=== PATIENT | female | born 1975 | race Caucasian/White ===

== ENCOUNTER 2016-10-22 14:39 | Emergency (ER) | payer BC ==
[2016-10-22 14:51] VITALS: BP 118/71
--- NOTE | 2016-10-22 15:34 | UC ---
Syncope/New Syncope HPI - HPI Summary HPI Summary: WOKE UP LAST NIGHT ABOUT 2AM TO USE THE RESTROOM WHICH IS DOWNSTAIRS. PT UNCLEAR TO WHAT HAPPENED BUT SHE FELL DOWN THE STAIRS. PROBABLY STRUCK HER HEAD ON THE HARDWOOD AT THAT TIME. NO LOC. WENT TO THE RESTROOM AND SAT DOWN TO PEE. STARTED HAVING PALPITATIONS, FELT COLD AND CLAMMY, BREATHING HEAVILY. THE NEXT THING SHE REMEMBERS IS WAKING UP ON THE FLOOR. GOT UP AND HAD THE SAME SX AGAIN AND AGAIN WOKE UP ON THE FLOOR. THEN MADE IT BACK TO HER ROOM. ONCE BACK IN BED SHE STARTED WITH THE SAME SX AGAIN BUT ALSO DEVELOPED CHEST PAIN AND LEFT ARM NUMBNESS. DECIDED TO STAY IN BED AND FELL ASLEEP. UPON WAKING THIS MORNING HAD THE SAME SX AND THEN AN EPISODE OF EMESIS. EPISODE THIS MORNING LASTED ABOUT 15 MINUTES. HAS FELT "OFF" AND "SPACEY" ALL DAY. PT HAS NO PERSONAL CARDIAC HISTORY. - History Of Current Complaint Chief Complaint: UCHeadInjury Stated Complaint: FAINTING,POSS HEAD INJURY Time Seen by Provider: 10/22/16 14:45 Hx Obtained From: Patient Hx Last Menstrual Period: 10/14/16 Onset/Duration: Sudden Onset Activity At Onset: At Rest Context: Unwitnessed Associated Head Trauma: Yes Pain Intensity: 0 Pain Scale Used: 0-10 Numeric Aggravating Factor(s): Nothing Alleviating Factor(s): Spontaneous Resolution Associated Signs And Symptoms: Positive: Chest Pain, Diaphoresis, Lightheadedness, Numbness, Palpitations, Shortness Of Breath, Vomiting - Allergies/Home Medications Allergies/Adverse Reactions: Allergies Allergy/AdvReac Type Severity Reaction Status Date / Time No Known Allergies Allergy Verified 10/22/16 14:51 PMH/Surg Hx/FS Hx/Imm Hx Previously Healthy: Yes - Surgical History Surgical History: Yes Surgery Procedure, Year, and Place: D&C-2003 - Family History Known Family History: Positive: Hypertension, Other - [place] - Social History Alcohol Use: Daily Substance Use Type: None Smoking Status (MU): Former Smoker Review of Systems Constitutional: Fatigue Respiratory: Shortness Of Breath Cardiovascular: Palpitations, Chest Pain Gastrointestinal: Vomiting, Nausea Genitourinary: Negative All Other Systems Reviewed And Are Negative: Yes Physical Exam Triage Information Reviewed: Yes Appearance: Well-Appearing, No Pain Distress, Well-Nourished Vital Signs: Initial Vital Signs Temp 97.7 F 10/22/16 14:46 Pulse 76 10/22/16 14:46 Resp 18 10/22/16 14:46 BP 118/71 10/22/16 14:46 Pulse Ox 100 10/22/16 14:46 Vital Signs Reviewed: Yes Eyes: Positive: Conjunctiva Clear ENT: Positive: Hearing grossly normal Neck: Positive: Supple, Nontender, No Lymphadenopathy Respiratory Exam: Normal Cardiovascular Exam: Normal Abdomen Description: Positive: Soft Musculoskeletal: Positive: No Edema Neurological: Positive: Alert Psychological: Positive: Age Appropriate Behavior Skin: Negative: rashes Syncope Course/Dx - Differential Dx/Diagnosis Provider Diagnoses: SYNCOPE/CHEST PAIN - Physician Notification/Consults Discussed Patient Care With: Carmen Krause - TO [facility] BY AMBULANCE Time Discussed With Above Provider: 15:15 Instructed by Provider To: Will See In ED Discharge - Discharge Plan Condition: Stable Disposition: TRANS HIGHER LVL OF CARE FAC Referrals: Pooja Jennings MD [Primary Care Provider] -
== END 2016-10-22 15:45 | disposition short-term general hospital (02) ==
LOC: UCEAST 14:39
DX: R55 Syncope and collapse (principal); R07.9 Chest pain, unspecified
CPT/HCPCS: 93005; 99213; G0463

== ENCOUNTER → 2016-10-22 16:13 | Emergency (ER) | payer BC ==
[~2016-10-22 16:13] MED LIST: NS 0.9% 1000 ML* 1,000 ML IV ONE
--- NOTE | 2016-10-22 16:48 | RAD ---
INDICATION: Syncope COMPARISON: None. TECHNIQUE: Single AP portable view of the chest was obtained. FINDINGS: Image quality is compromised due to the relative inferiority of a portable chest x-ray. The heart and mediastinum exhibit normal size and contour. The lungs are grossly clear. There is no evidence of a large pleural effusion. Visualized bones are normal for the patient's age. IMPRESSION: No radiographic evidence for acute cardiopulmonary abnormality on this portable chest x-ray.
[2016-10-22 16:52] LABS: Hematocrit 37 % (35-47); Hemoglobin 12.7 g/dl (12.0-16.0); Mean Corpuscular HGB Conc 34 g/dl (31-36); Mean Corpuscular Hemoglobin 31 pg (27-31); Mean Corpuscular Volume 92 fL (80-97); Mean Platelet Volume 7 um3 (7.4-10.4); Red Blood Count 4.05 10^6/ul (4.0-5.4); Red Cell Distribution Width 13 % (10.5-15); White Blood Count 7.7 10^3/ul (3.5-10.8)
--- NOTE | 2016-10-22 17:00 | RAD ---
Indication: Syncope. Comparison: No relevant prior exams available on the [facility] for comparison. Technique: Noncontrast CT vertex of skull through foramen magnum. Report: The sulci, ventricles, and basal cisterns are normal for age. Mcarthur matter white matter differentiation is preserved without evidence for edema. No intra or extra axial hemorrhage, mass, or fluid collection detected. Unremarkable visualized orbital contents. Unremarkable calvarium and skull base. Unremarkable scalp. The visualized paranasal sinuses and mastoid air spaces are clear. IMPRESSION: Negative unenhanced head CT.
--- NOTE | 2016-10-22 17:04 | RAD ---
INDICATION: Syncope. COMPARISON: July 23, 2011 cervical spine radiographs. TECHNIQUE: Multidetector CT images foramen magnum to lung apices without contrast. Multiplanar reformation. REPORT: Mild kyphosis which appears positional for the exam. Negative for spondylolisthesis or facet subluxation at any level. No vertebral body or posterior element fracture evident. Negative for paravertebral hematoma. Ankylosis at the occiput C1 facet joints. At C4-C5 there is moderate disc space narrowing without CT suggestion of acquired spinal stenosis. At C5-C6 there is advanced disc space narrowing and mild vertebral endplate osteophytosis and reactive endplate change. Mild dorsal disc osteophyte complex without CT evidence for significant central canal stenosis. Uncinate process spurring without significant resulting foraminal stenosis. IMPRESSION: No CT evidence for traumatic cervical spine injury.
[2016-10-22 17:09] LABS: ALT 10 U/L (7-52); AST 16 U/L (13-39); Albumin 4.1 g/dL (3.2-5.2); Alkaline Phosphatase 44 U/L (34-104); Anion Gap 3 mmol/L (2-11); BUN/Creatinine Ratio 22.8 (8-20); Blood Urea Nitrogen 13 mg/dL (6-24); CO2 Carbon Dioxide 30 mmol/L (22-32); Calcium 8.8 mg/dL (8.6-10.3); Chloride 103 mmol/L (101-111); Creatine Kinase 43 U/L (10-223); EGFR African American 151.1 (>60); EGFR Non-African American 117.5 (>60); Globulin 2.4 g/dL (2-4); Glucose 97 mg/dL (70-100); Magnesium 2.2 mg/dL (1.9-2.7); Potassium 3.7 mmol/L (3.5-5.0); Sodium 136 mmol/L (133-145); Total Protein 6.5 g/dL (6.4-8.9)
[2016-10-22 17:30] LABS: Alcohol < 10 mg/dL (<10)
[2016-10-22 17:40] LABS: TSH (Thyroid Stimulating Horm) 1.08 mcIU/mL (0.34-5.60)
[2016-10-22 17:43] LABS: Benzodiazepine Urine Screen None Detected (None Detect)
[2016-10-22 17:51] LABS: Urine Bilirubin Negative (Negative); Urine Glucose Negative (Negative); Urine Nitrite Negative (Negative)
[2016-10-22 21:07] VITALS: BP 114/76
--- NOTE | 2016-10-22 23:14 | ED ---
Chriss Berg Thomas, scribed for Carmen Krause MD on 10/22/16 at 1737 . Syncope/Near Syncope - HPI Summary HPI Summary: The pt is a 41 y/o F [place] [facility] [place] presenting to the ED with two syncopal episodes. The patient reports that she woke up today at 02:00 to go to the bathroom and on the way to the bathroom, the patient fell down 5 stairs. When the patient reached the bathroom and was seated on the toilet, she began to feel lightheaded, palpitations, and clamminess. She then had LOC and the next thing she remembers is being on the floor. The patient reports another syncopal episode shortly after the first. Following this second episode, the patient began to experience chest tightness and heavy breathing. She denies any urinary or fecal incontinence during this episode. The patient went to sleep shortly thereafter. Later, when the patient was at work in the morning, she began to develop lightheadedness, palpitations, and clamminess again. She works at [employer], a [employer], and at the request of her coworkers she presented to [facility] In the ED, the patients only complaints are of tiredness, bruising to her 2nd and 3rd toes of her right foot, and an abrasion to the inside of her cheek. She denies CP, SOB, WALL, and abd pain. PMHx: previously healthy. PSHx: D&C. SHx: former smoker, daily alcohol use, no illicit drug use. FHx: HTN, CA. LNMP 10/09/16. Patients medications reviewed this visit. - History Of Current Complaint Chief Complaint: EDSyncope Time Seen by Provider: 10/22/16 16:14 Hx Obtained From: Patient, Medical Records, Other: - Dr. Nissa Gibson, [facility] Onset/Duration: Sudden Onset, Lasting Minutes - first syncopal episode today at 02:00 Timing: Constant Context: Unwitnessed, Loss Of Consciousness Activity At Onset: Other - Walking down stairs for first syncopal episode and then on the toilet for the second syncopal episode when seated onthe toilet Aggravating Factor(s): Nothing Alleviating Factor(s): Spontaneous Resolution Associated Signs And Symptoms: Chest Pain - none in the ED, although she complains of chest tightness earlier, Lightheadedness - none in the ED, although some lightheadedness during syncopal episode, Palpitations, Shortness Of Breath - none inthe ED, although some dificulty breathing earlier, Other - POS: claminess (none in ED), syncope with LOC, tiredness, bruising to toes; NEG : urinary or fecal incontinence, abd pain, WALL Frequency: Episodes x___ - 2x episodes - Allergies/Home Medications Allergies/Adverse Reactions: Allergies Allergy/AdvReac Type Severity Reaction Status Date / Time No Known Allergies Allergy Verified 10/22/16 16:17 PMH/Surg Hx/FS Hx/Imm Hx Previously Healthy: Yes Endocrine/Hematology History: Denies: Hx Diabetes, Hx Thyroid Disease Cardiovascular History: Denies: Hx Hypertension Respiratory History: Denies: Hx Asthma, Hx Chronic Obstructive Pulmonary Disease (COPD) GI History: Denies: Hx Ulcer - Surgical History Surgery Procedure, Year, and Place: &C-2003 Infectious Disease History: No Infectious Disease History: Denies: Hx Clostridium Difficile, Hx Hepatitis, Hx Human Immunodeficiency Virus (HIV), Hx of Known/Suspected MRSA, Hx Shingles, Hx Tuberculosis, Hx Known/ Suspected VRE, Hx Known/Suspected VRSA, History Other Infectious Disease, Traveled Outside the [place] in Last 30 Days - Family History Known Family History: Positive: Hypertension, Other - [place] - Social History Alcohol Use: Daily Substance Use Type: Reports: None Smoking Status (MU): Former Smoker Review of Systems Positive: Other - POS: claminess (pre-syncope). Negative: Fever Positive: Palpitations - pre-syncope, Chest Pain - post-syncope, described as syncope, none in the ED Positive: Shortness Of Breath - post-syncope, none in the ED Negative: Abdominal Pain Negative: other - NEG: urinary or fecal incontinence Positive: Other - POS: abrasion (inside of cheek), bruising (2nd and 3rd toes of right foot) Neurological: Other - POS: syncope with LOC (two episodes), lightheadedness (pre -syncope), tiredness (in the ED) Negative: Headache All Other Systems Reviewed And Are Negative: Yes Physical Exam Triage Information Reviewed: Yes Vital Signs On Initial Exam: Initial Vitals Temp Pulse Resp BP Pulse Ox 97.8 F 80 16 123/91 95 10/22/16 16:15 10/22/16 16:15 10/22/16 16:15 10/22/16 16:15 10/22/16 16:15 Vital Signs Reviewed: Yes Appearance: Positive: Well-Appearing, No Pain Distress - at initial examination , patient wants to leave, Well-Nourished Skin: Positive: Warm, Skin Color Reflects Adequate Perfusion, Dry, Other - Superficial abrasions on right knee Head/Face: Positive: Normal Head/Face Inspection, Other - There are no racoon eyes or hemotympanum Eyes: Positive: GIOVANA - 2 mm ENT: Positive: Normal ENT inspection Neck: Positive: Supple Respiratory/Lung Sounds: Positive: Clear to Auscultation, Breath Sounds Present , Other - No respiratory distress Cardiovascular: Positive: RRR, Pulses are Symmetrical in both Upper and Lower Extremities, Other - Brisk cap refill.. Negative: Murmur Abdomen Description: Positive: Nontender, Soft. Negative: CVA Tenderness (R), CVA Tenderness (L) Bowel Sounds: Positive: Present Musculoskeletal: Positive: Strength/ROM Intact, Other - Chest is non-tender Neurological: Positive: Sensory/Motor Intact, Alert, Oriented to Person Place, Time, Facial Symmetry, Speech Normal Psychiatric: Positive: Affect/Mood Appropriate - [place] Coma Scale Coma Scale Total: 15 Diagnostics - Vital Signs Vital Signs Temp Pulse Resp BP Pulse Ox 10/22/16 17:00 66 19 105/69 99 10/22/16 16:53 71 18 107/73 99 10/22/16 16:48 86 21 97 10/22/16 16:47 105/64 96 10/22/16 16:17 97.8 F 80 16 123/91 95 10/22/16 16:15 97.8 F 80 16 123/91 95 - Laboratory Lab Results: Lab Results 10/22/16 10/22/16 10/22/16 Range/Units 16:43 16:43 16:43 WBC 7.7 (3.5-10.8) 10^3/ul RBC 4.05 (4.0-5.4) 10^6/ul Hgb 12.7 (12.0-16.0) g/dl Hct 37 (35-47) % MCV 92 (80-97) fL MCH 31 (27-31) pg MCHC 34 (31-36) g/dl RDW 13 (10.5-15) % Plt Count 252 (150-450) 10^3/ul MPV 7 L (7.4-10.4) um3 Neut % (Auto) 68.4 (38-83) % Lymph % (Auto) 21.3 L (25-47) % [place] % (Auto) 8.9 (1-9) % Eos % (Auto) 0.7 (0-6) % Baso % (Auto) 0.7 (0-2) % Absolute Neuts (auto) 5.3 (1.5-7.7) 10^3/ul Absolute Lymphs (auto) 1.7 (1.0-4.8) 10^3/ul Absolute Monos (auto) 0.7 (0-0.8) 10^3/ul Absolute Eos (auto) 0.1 (0-0.6) 10^3/ul Absolute Basos (auto) 0.1 (0-0.2) 10^3/ul Absolute Nucleated RBC 0 10^3/ul Nucleated RBC % 0 INR (Anticoag Therapy) 0.94 (0.89-1.11) D-Dimer, Quantitative < 200 (Less Than 230) ng/mL Sodium 136 (133-145) mmol/L Potassium 3.7 (3.5-5.0) mmol/L Chloride 103 (101-111) mmol/L Carbon Dioxide 30 (22-32) mmol/L Anion Gap 3 (2-11) mmol/L BUN 13 (6-24) mg/dL Creatinine 0.57 (0.51-0.95) mg/dL Est GFR ( Amer) 151.1 (>60) Est GFR (Non-Af Amer) 117.5 (>60) BUN/Creatinine Ratio 22.8 H (8-20) Glucose 97 (70-100) mg/dL Lactic Acid (0.5-2.0) mmol/L Calcium 8.8 (8.6-10.3) mg/dL Magnesium 2.2 (1.9-2.7) mg/dL Total Bilirubin 0.50 (0.2-1.0) mg/dL AST 16 (13-39) U/L ALT 10 (7-52) U/L Alkaline Phosphatase 44 (34-104) U/L Total Creatine Kinase 43 (10-223) U/L Troponin I 0.00 (<0.04) ng/mL Total Protein 6.5 (6.4-8.9) g/dL Albumin 4.1 (3.2-5.2) g/dL Globulin 2.4 (2-4) g/dL Albumin/Globulin Ratio 1.7 (1-3) TSH Pending Beta HCG, Quant < 0.60 mIU/mL Serum Alcohol Pending 10/22/16 Range/Units 16:43 WBC (3.5-10.8) 10^3/ul RBC (4.0-5.4) 10^6/ul Hgb (12.0-16.0) g/dl Hct (35-47) % MCV (80-97) fL MCH (27-31) pg MCHC (31-36) g/dl RDW (10.5-15) % Plt Count (150-450) 10^3/ul MPV (7.4-10.4) um3 Neut % (Auto) (38-83) % Lymph % (Auto) (25-47) % [place] % (Auto) (1-9) % Eos % (Auto) (0-6) % Baso % (Auto) (0-2) % Absolute Neuts (auto) (1.5-7.7) 10^3/ul Absolute Lymphs (auto) (1.0-4.8) 10^3/ul Absolute Monos (auto) (0-0.8) 10^3/ul Absolute Eos (auto) (0-0.6) 10^3/ul Absolute Basos (auto) (0-0.2) 10^3/ul Absolute Nucleated RBC 10^3/ul Nucleated RBC % INR (Anticoag Therapy) (0.89-1.11) D-Dimer, Quantitative (Less Than 230) ng/mL Sodium (133-145) mmol/L Potassium (3.5-5.0) mmol/L Chloride (101-111) mmol/L Carbon Dioxide (22-32) mmol/L Anion Gap (2-11) mmol/L BUN (6-24) mg/dL Creatinine (0.51-0.95) mg/dL Est GFR ( Amer) (>60) Est GFR (Non-Af Amer) (>60) BUN/Creatinine Ratio (8-20) Glucose (70-100) mg/dL Lactic Acid 0.5 (0.5-2.0) mmol/L Calcium (8.6-10.3) mg/dL Magnesium (1.9-2.7) mg/dL Total Bilirubin (0.2-1.0) mg/dL AST (13-39) U/L ALT (7-52) U/L Alkaline Phosphatase (34-104) U/L Total Creatine Kinase (10-223) U/L Troponin I (<0.04) ng/mL Total Protein (6.4-8.9) g/dL Albumin (3.2-5.2) g/dL Globulin (2-4) g/dL Albumin/Globulin Ratio (1-3) TSH Beta HCG, Quant mIU/mL Serum Alcohol Result Diagrams: 10/22/16 16:43 10/22/16 16:43 Lab Statement: Any lab studies that have been ordered have been reviewed, and results considered in the medical decision making process. - Radiology CXR Xray Interpretation: No Acute Changes - CXR shows No radiographic evidence for acute cardiopulmonary abnormality on this portable chest x-ray. ED physician has reviewed this report and agrees. Radiology Interpretation Completed By: Radiologist - CT CT Brain CT Interpretation: No Acute Changes - CT Brain shows negative unenhanced head CT. ED physician has reviewed this report and agrees. CT Interpretation Completed By: Radiologist CT C-Spine CT Interpretation: No Acute Changes - CT C-Spine Shows No CT evidence for traumatic cervical spine injury. ED physician has reviewed this report and agrees. CT Interpretation Completed By: Radiologist - EKG 16:17 Cardiac Rate: NL - 68 BPM EKG Interpretation: Sinus rhythm. Normal AV/IV/QTc/[place]. Nml EKG. EKG Comparison: Other - No previous to compare Course/Dx Assessment/Plan: The pt is a 41 y/o F [place] [facility] with two syncopal episodes with LOC. During these episodes, she felt lightheadedness, palpitations , and clamminess. She also notes complaints of chest tightness and heavy breathing. She denies any urinary or fecal incontinence during this episode. In the ED, she denies CP, SOB, WALL, and abd pain. In the ED course the patient was given IV fluids. CXR shows No radiographic evidence for acute cardiopulmonary abnormality on this portable chest x-ray. CT C-Spine Shows No CT evidence for traumatic cervical spine injury. CT Brain shows negative unenhanced head CT. ED physician has reviewed this report and agrees. EKG at 16:17 reveals SR at 68 BPM , Normal AV/IV/QTc/[place]. Nml EKG. The patient is diagnosed with syncope. She is discharged home with follow up by PCP. She is agreeable to this plan. Discharge - Discharge Plan Condition: Stable Disposition: HOME Patient Education Materials: Syncope (ED) Forms: *Work Release Referrals: Pooja Jennings MD [Primary Care Provider] - 3 Days Additional Instructions: Your labs and CT and chest xray were all remarkable. You were given a liter of normal saline while in the ER. Return to the ER if you have any new or worsening symptoms. The documentation as recorded by the Chriss talbot Thomas accurately reflects the service I personally performed and the decisions made by , Carmen Krause MD.
== END | disposition home or self-care (01) ==
LOC: ED 16:13
DX: R55 Syncope and collapse (principal); Z87.891 Personal history of nicotine dependence; R07.89 Other chest pain
CPT/HCPCS: 36415; 70450; 71010; 72125; 80053; 80307; 80320; 81003; 82550; 83605; 83735; 84443; 84484; 84702; 85025; 85379; 85610; 93005; 96360; 99283; G0480

== ENCOUNTER 2018-06-13 11:18 | Emergency (ER) | payer BC ==
[2018-06-13] MEDS ORDERED: Aspirin TAB* 325 MG PO ONE (11:28)
[2018-06-13] MEDS ORDERED: Nitroglycerin TAB 0.4 MG* 0.4 MG TAB SL ONE (11:28)
[2018-06-13] MEDS ORDERED: Aspirin 81 mg CHEW TAB* 81 MG TAB.CHEW ONE (11:29)
[2018-06-13] MEDS ORDERED: Morphine 10 MG/ML VIAL (1 ml) IV ONE (11:36)
--- NOTE | 2018-06-13 11:36 | UC ---
General HPI - HPI Summary HPI Summary: Patient c/o chest pain for the past two days. Started yesterday while at rest in the afternoon after she saw her PCP for follow fpr a cold. She was prescribed buspar and singulair. Thought maybe it was a panic attack. Does have issues with anxiety. CHest pain radiating into her back. So she rested all day yesterday. She took her new medications prescribed to her for her cold and anxiety last night thinking it would help with her chest pain. - buspar and singulair. No improvement in her symptoms today. Continues with chest pain, now with SOB, diaphoresis, nausea and palpitations. Substernal chest pain. No indigestion or belching - states she hasn't eaten anything due to the discomfort. Denies any exertional activity. States she just does not feel right. Thought the medication she started last night would help her feel better. Has had sinus infections all winter. Has not needed her inhaler in 2 years. NO fever PMHx: Anxiety, seasonal allergies, asthma No FMHx of early cardiac disease/. Meds: REviewed - History of Current Complaint Chief Complaint: UCChestPain Stated Complaint: CHEST PAIN Time Seen by Provider: 06/13/18 11:20 Hx Last Menstrual Period: two weeks ago Pain Intensity: 8 - Allergy/Home Medications Allergies/Adverse Reactions: Allergies Allergy/AdvReac Type Severity Reaction Status Date / Time No Known Allergies Allergy Verified 10/22/16 16:17 Home Medications: Home Medications Escitalopram Oxalate [Lexapro 10 mg] 10 mg PO DAILY 06/13/18 [History Confirmed 06/13/18] Montelukast Sodium TAB* [Singulair TAB*] 10 mg PO DAILY 06/13/18 [History Confirmed 06/13/18] busPIRone TAB* [Buspar TAB*] 5 mg PO BID 06/13/18 [History Confirmed 06/13/18] PMH/Surg Hx/FS Hx/Imm Hx Previously Healthy: Yes Respiratory History: Asthma Psychological History: Anxiety - Surgical History Surgical History: Yes Surgery Procedure, Year, and Place: D&C-2003 - Family History Known Family History: Positive: Hypertension, Other - [place] - Social History Alcohol Use: Weekly Substance Use Type: None Smoking Status (MU): Former Smoker Review of Systems All Other Systems Reviewed And Are Negative: Yes Constitutional: Positive: Negative Respiratory: Positive: Shortness Of Breath Cardiovascular: Positive: Palpitations, Chest Pain Physical Exam Triage Information Reviewed: Yes Appearance: Other: - mildly acute distress Vital Signs: Initial Vital Signs Temp 98.7 F 06/13/18 11:23 Pulse 103 06/13/18 11:23 Resp 20 06/13/18 11:23 BP 153/83 06/13/18 11:23 Pulse Ox 98 06/13/18 11:23 Vital Signs Reviewed: Yes ENT: Positive: Pharyngeal erythema, TMs normal Neck: Positive: Supple Respiratory: Positive: Lungs clear, Normal breath sounds, No respiratory distress Cardiovascular: Positive: Tachycardia, Other: - soft systolic murmur Diagnostics - EKG Cardiac Rate: Other Rate - Ana Sinus: rate: 94, Minimal ST depression in lateral leads Course/Dx - Course Course Of Treatment: This is a 42 yr old with PMHx of anxiety, mild asthma who presents with chest pain, SOB and palpitations Assessment Presentation with subtle EKG changes - minimal ST depression in lateral leads NEeds [facility] to rule out ACS Received ASA 325 mg PO x 1, NTG 0.4 mg SL and morphine 2 mg On transport, more crushing type chest pain Repeat 12 lead - remains unremarkable Patient aware of need to be transported to [facility] ER for work up for acute coronary syndrome. Could also be anxiety/panic attack Patient transported via EMS to [facility] ED - Report given to Dr. Robertson - Diagnoses Provider Diagnosis: Chest pain, Anxiety Discharge - Sign-Out/Discharge Documenting (check all that apply): Patient Departure All imaging exams completed and their final reports reviewed: No Studies - Discharge Plan Condition: Fair Disposition: TRANS HIGHER LVL OF CARE FAC Referrals: Pooja Jennings MD [Primary Care Provider] - Additional Instructions: Patient transported via EMS to [facility] ED for evaluation of chest pain - Billing Disposition and Condition Condition: FAIR Disposition: Trans Higher Lvl of Care Fac
[2018-06-13 11:49] VITALS: BP 160/120
== END 2018-06-13 11:50 | disposition short-term general hospital (02) ==
LOC: UCEAST 11:18
DX: R07.89 Other chest pain (principal); F41.9 Anxiety disorder, unspecified; R06.02 Shortness of breath; R61 Generalized hyperhidrosis; R00.2 Palpitations; J45.909 Unspecified asthma, uncomplicated; Z87.891 Personal history of nicotine dependence
CPT/HCPCS: 93005; 96374; 99213; A9270-GY; G0463; J2270

== ENCOUNTER 2018-06-13 12:13 | Emergency (ER) | payer BC ==
[2018-06-13] MEDS ORDERED: NS 0.9% 1000 ML** 1,000 ML IV ONE (12:14)
--- NOTE | 2018-06-13 12:31 | ED ---
HPI Chest Pain - HPI Summary HPI Summary: t is a 42 y/o female brought in by EMS who presents to the ED c/o left anterior CP. She was sent here from the for further evaluation. An EKG there revealed NSR and minimal ST depressions in the lateral leads. Pt was given ASA, NTG, and morphine at the which improved her pain. Yesterday she began to have CP that radiates to her back while at rest. This morning the CP worsened, and she also now c/o racing palpitations, nausea, diaphoresis, and mild SOB. Pain is constant and stabbing in nature, and is currently rated a 5/10 in severity. Pain is made worse with deep breaths. Recently shes also c/o anxiety and decreased appetite. She denies any vomiting. Pt took her own vital signs at home : BP 127/80, HR 112 bpm. She notes that she has been under stress recently and is currently trying to get her anxiety medication dosage increased. Pt is a former smoker. PMHx anxiety, but no DM or HTN. She has a Mirena IUD. - History of Current Complaint Time Seen by Provider: 06/13/18 12:14 Hx Obtained From: Patient, EMS, Medical Records Hx Last Menstrual Period: two weeks ago Onset/Duration: Started Days Ago - 1, Resolved - somewhat Timing: Constant Current Severity: Moderate Pain Intensity: 5 Pain Scale Used: 0-10 Numeric Chest Pain Location: Left Anterior Chest Pain Radiates: Yes Chest Pain Radiates To:: Back Character: Sharp/Stabbing Aggravating Factor(s): Deep Breaths Alleviating Factor(s): Other: - ASA, NTG, morphine Associated Signs and Symptoms: Positive: Chest Pain, Anxiety, Shortness of Breath, Diaphoresis, Nausea, Palpitations - Allergy/Home Medications Allergies/Adverse Reactions: Allergies Allergy/AdvReac Type Severity Reaction Status Date / Time No Known Allergies Allergy Verified 10/22/16 16:17 PMH/Surg Hx/FS Hx/Imm Hx Endocrine/Hematology History: Denies: Hx Diabetes, Hx Thyroid Disease Cardiovascular History: Denies: Hx Hypercholesterolemia, Hx Hypertension Respiratory History: Reports: Hx Asthma - enviro allergies, Hx Seasonal Allergies Denies: Hx Chronic Obstructive Pulmonary Disease (COPD) GI History: Denies: Hx Gall Bladder Disease, Hx Ulcer Psychiatric History: Reports: Hx Anxiety, Hx Depression - Surgical History Surgery Procedure, Year, and Place: [facility]&C-2003 Infectious Disease History: Denies: Hx Clostridium Difficile, Hx Hepatitis, Hx Human Immunodeficiency Virus (HIV), Hx of Known/Suspected MRSA, Hx Shingles, Hx Tuberculosis, Hx Known/ Suspected VRE, Hx Known/Suspected VRSA, History Other Infectious Disease - Family History Known Family History: Positive: Hypertension, Diabetes, Other - CA - Social History Alcohol Use: Weekly Hx Substance Use: No Substance Use Type: Reports: None Hx Tobacco Use: Yes Smoking Status (MU): Former Smoker Review of Systems Positive: Skin Diaphoresis, Other - decreased appetite Positive: Palpitations, Chest Pain Positive: Shortness Of Breath Positive: Nausea. Negative: Vomiting Positive: Anxious All Other Systems Reviewed And Are Negative: Yes Physical Exam - Summary Physical Exam Summary: Appearance: well appearing, no pain distress Skin: warm, dry, reflects adequate perfusion Head/face: normal Eyes: EOMI, GIOVANA ENT: mucous membranes moist Neck: supple, non-tender Respiratory: CTA, breath sounds present Cardiovascular: RRR, pulses symmetrical Abdomen: non-tender, soft Bowel Sounds: present Musculoskeletal: normal, strength/ROM intact Neuro: normal, sensory motor intact, A&Ox3 Psych: mildly anxious Triage Information Reviewed: Yes Vital Signs Reviewed: Yes Diagnostics - Laboratory Result Diagrams: 06/13/18 12:45 06/13/18 12:45 Lab Statement: Any lab studies that have been ordered have been reviewed, and results considered in the medical decision making process. - Radiology CXR Radiology Interpretation Completed By: Radiologist Summary of Radiographic Findings: No radiographic evidence for acute cardiopulmonary abnormality on this. portable chest x-ray. ED physician reviewed radiology report. - EKG 12:25 Cardiac Rate: NL - 80 bpm EKG Rhythm: Sinus Rhythm ST Segment: Normal Summary of EKG Findings: Nl axis, nl intervals Re-Evaluation - Re-Evaluation First Eval Re-Evaluation Time: 14:15 Change: Improved Comment: Pt's pain is improved. Chest Pain Course/Dx - Course Course Of Treatment: [place] patient without independent risk factors for cardiac disease presents with unremitting chest pain and anxiety. She had no improvement with nitroglycerin. D-dimer, troponin are 0. EKG is normal. Her symptoms resolved here largely on her own but improved further with Ativan. She 'll be continued on Vistaril outpatient and will follow-up with her primary care physician for outpatient stress test. - Chest Pain Differential Diagnosis/HQI/PQRI: Acute [place], ACS, GI Disease, Lower Respiratory Infection, Pulmonary Edema, Pulmonary Embolism - Diagnoses Provider Diagnoses: Anxiety reaction, Atypical chest pain Discharge - Sign-Out/Discharge Documenting (check all that apply): Patient Departure - Discharge Patient Received Moderate/Deep Sedation with Procedure: No - Discharge Plan Condition: Improved Disposition: HOME Prescriptions: hydrOXYzine pamoate [Vistaril] 50 mg PO TID PRN #30 cap PRN Reason: Anxiety Patient Education Materials: Chest Pain (ED), Anxiety (ED) Forms: *Work Release Referrals: Pooja Jennings MD [Medical Doctor] - Additional Instructions: Call your doctor today to schedule prompt follow-up and an outpatient echocardiogram. Drink plenty of fluids. Avoid alcohol and caffeine. Return with on controlled anxiety, difficulty breathing, chest pains, worse or other concerns. - Billing Disposition and Condition Condition: IMPROVED Disposition: Home - Attestation Statements Document Initiated by Fabiane: Yes Documenting Scribe: Shreya Mo Provider For Whom [place] is Documenting (Include Credential): Karel Robertson MD Scribe Attestation: Shreya Berg, scribed for Karel Robertson MD on 06/13/18 at 1849. Scribe Documentation Reviewed: Yes Provider Attestation: The documentation as recorded by the scribeShreya accurately reflects the service I personally performed and the decisions made by me, Karel Robertson MD Status of Scribe Document: Viewed
[2018-06-13 12:54] LABS: ABS Basophils 0.1 10^3/ul (0-0.2); ABS Eosinophils 0 10^3/ul (0-0.6); ABS Lymphocytes 1.9 10^3/ul (1.0-4.8); ABS Monocytes 0.9 10^3/ul (0-0.8); ABS Neutrophils 6.8 10^3/ul (1.5-7.7); ABS Nucleated RBC 0 10^3/ul; Eosinophil % 0.4 %; Hematocrit 39 % (33-41); Hemoglobin 13.4 g/dL (12.0-16.0); Lymphocyte % 19.5 %; Mean Corpuscular HGB Conc 35 g/dL (31-36); Mean Corpuscular Hemoglobin 31 pg (27-31); Mean Corpuscular Volume 91 fL (80-97); Mean Platelet Volume 7.1 fL (7.4-10.4); Nucleated Red Blood Cells % 0.1; Platelet Count 305 10^3/uL (150-450); Red Blood Count 4.28 10^6 /uL (3.70-4.87); Red Cell Distribution Width 13 % (10.5-15); White Blood Count 9.6 10^3/uL (3.5-10.8)
[2018-06-13 13:05] LABS: INR 1.03 (0.82-1.09)
[2018-06-13 13:10] LABS: ALT 10 U/L (7-52); AST 16 U/L (13-39); Albumin 4.5 g/dL (3.2-5.2); Albumin/Globulin Ratio 1.5 (1-3); Alkaline Phosphatase 65 U/L (34-104); Anion Gap 7 mmol/L (2-11); BUN/Creatinine Ratio 17.7 (8-20); Blood Urea Nitrogen 11 mg/dL (6-24); CO2 Carbon Dioxide 26 mmol/L (22-32); Calcium 9.3 mg/dL (8.6-10.3); Chloride 104 mmol/L (101-111); EGFR African American 128.4 (>60); EGFR Non-African American 106.1 (>60); Glucose 117 mg/dL (70-100); Potassium 3.5 mmol/L (3.5-5.0); Sodium 137 mmol/L (135-145); Total Protein 7.5 g/dL (6.4-8.9)
--- OUTSIDE RECORDS SUMMARY | 2018-06-13 13:12 | XMS REPORT | Continuity of Care Document ---
:1975 External Reference #:[id number] Author Name Lisa Payton FNP Address [address] [place] [address] Care Team Providers Name Role Phone Flori Mcmahon, TORRI, ARCHEOLOGY FACULTY MEMBER, Ibclc Care Team Information Printed Circuit Board Preassembler Unavailable Flori Mcmahon PNP-BC, ROLANDA, Ibclc Primary Care Physician Unavailable Payers Date Identification Numbers Payment Provider Subscriber Policy Number: [id number] Hui Day PayID: [id number] [address] [address] [place] [address] Advance Directives Description No Information Available Problems Active Problems Provider Date Dysthymia Lisa Payton FNP Onset: 02/17/2015 Inactive Problems No current problems or disability Onset: 03/05/2014 Inactive: 01/20/2015 Resolved Problems Otitis media Chitra Kessler MD Onset: 01/20/2015 Resolved: 02/17/2015 Family History Description No Information Available Social History Type Date Description Comments Sex Unknown Lives With Lives With Sons Diet Healthy, Well Balanced Occupation Currently Working Tobacco Use Start: Unknown End: Former Cigarette Smoker Unknown Smoking Status Reviewed: 06/12/18 Former Cigarette Smoker ETOH Use consumes 1-2 glasses of wine per day ETOH Use Currently consumes alcohol socially Tobacco Use Start: Unknown End: Patient is a former 1PPDx 26 years Quit Unknown smoker 05/2013 Enjoy Exercising Patient enjoys exercising Allergies, Adverse Reactions, Alerts Active Allergies Reaction Severity Comments Date NKDA 03/18/2016 Environmental 05/12/2011 Medications Active Medications SIG Qnty Indications Ordering Provider Date Buspirone HCL take 1 -2 tablet 120tabs F41.1 [place], 06/12/2018 5mg by mouth three [place], Tablets times a day [facility] Montelukast Sodium take one tablet 30tabs J30.9 [place], 06/12/2018 10mg by mouth every [place], Tablets evening [facility] Escitalopram Oxalate take 1 tablet by 30tabs Flori Mcmahon, 01/09/2018 mouth daily. [facility], 20mg Tablets Ibclc Zanaflex Take 1 tablet by 30caps R20.0 More Mccray FNP 12/16/2017 2mg Capsules mouth every 8 hours as needed for muscle spasm Ventolin HFA 1-2 puffs every 18gm Pooja Jennings M.D. 03/04/2016 4-6 hours as 108(90Base) mcg/Act needed Aerosol Nasonex one spray each 1units H69.92 Pooja Jennings M.D. 02/17/2015 50mcg/Act nostril twice a Suspension day Mirena Fito, 12/15/2014 20mcg/24HR IUD Lisa [facility] Vitamin C 1 by mouth every Unknown 500mg day Chewtabs Magnesium 1 by mouth every Unknown 400mg Tablets day History Medications Cyclobenzaprine HCL take 1 tablet 30tabs R20.0 More Mccray, 12/16/2017 - 10mg by mouth up to [facility] 12/16/2017 Tablets 3 times per day as needed for muscle spasms Escitalopram Oxalate Take 1 tablet 30tabs F33.0 More Mccray, 12/16/2017 - 10mg by mouth daily [facility] 01/09/2018 Tablets at bedtime. Sertraline HCL 1 and 1/2 tab 45tabs Flori Mcmahon, 06/07/2017 - 100mg by mouth every ROLANDA WILD, 12/16/2017 Tablets daily Ibclc Augmentin 1 tab by mouth 20tabs J01.90 Flori Mcmahon, 03/18/2016 - 875-125mg Tablets twice a day PNPROLANDA GILL, 04/01/2016 for 10 days Ibclc Cedax 1 PO qd 10caps H66.92 Chitra Kessler, 01/20/2015 - 400mg Capsules 01/20/2015 Amoxicillin/Clavulanate 2 By Mouth 40tabs H66.92 Chitra Kessler 2014 - Potassium 2X/Day 01/31/2015 500-125mg Tablets Sertraline HCL 1 by mouth 30tabs Flori Mcmahon, 01/06/2015 - 50mg Tablets every day TORRI, ROLANDA, 06/07/2017 Ibclc Ventolin HFA 1-2 puffs q 36units Rose Mary 11/26/2010 - 108mcg/Act 4-6 hours prn MD Ginger 02/24/2016 Aerosol Medications Administered in Office Medication SIG Qnty Indications Ordering Provider Date More Crouch FNP 02/27/2018 Injection Flori Hennessy PNP-BC, 02/24/2017 Injection ARCHEOLOGY FACULTY MEMBER, Vishnu RODRIGUEZ Family Nurse 02/22/2017 Injection Pooja Luna M.D. 02/24/2016 Injection Lisa Brady FNP 02/17/2015 Injection Immunizations CPT Code Status Date Vaccine Lot # [id number] Given 06/07/2017 Tdap injection [id number] Vital Signs Date Vital Result Comment 06/12/2018 9:40am BP Systolic 128 mmHg BP Diastolic 80 mmHg Body Temperature 98.7 F Heart Rate 80 /min Respiratory Rate 18 /min Height 62 inches 5'2" Weight 160.38 lb BMI (Body Mass Index) 29.3 kg/m2 BSA (Body Surface Area) 1.74 m2 [place] body weight in kilograms 50 kg O2 % BldC Oximetry 98 % Ra 02/27/2018 4:01pm BP Systolic 124 mmHg BP Diastolic 72 mmHg Heart Rate 79 /min Respiratory Rate 18 /min Height 62 inches 5'2" Weight 170.00 lb BMI (Body Mass Index) 31.1 kg/m2 BSA (Body Surface Area) 1.78 m2 [place] body weight in kilograms 50 kg O2 % BldC Oximetry 94 % 01/09/2018 8:32am BP Systolic 110 mmHg BP Diastolic 66 mmHg Heart Rate 84 /min Respiratory Rate 16 /min Height 62 inches 5'2" Weight 166.00 lb BMI (Body Mass Index) 30.4 kg/m2 BSA (Body Surface Area) 1.77 m2 [place] body weight in kilograms 50 kg O2 % BldC Oximetry 96 % 12/16/2017 4:25pm BP Systolic Sitting Right Arm 132 mmHg BP Diastolic Sitting Right Arm 70 mmHg Body Temperature 98.6 F Heart Rate 83 /min Respiratory Rate 22 /min Height 62 inches 5'2" Weight 162.50 lb BMI (Body Mass Index) 29.7 kg/m2 BSA (Body Surface Area) 1.75 m2 [place] body weight in kilograms 50 kg O2 % BldC Oximetry 96 % 06/07/2017 3:44pm BP Systolic Sitting Left Arm 104 mmHg BP Diastolic Sitting Left Arm 64 mmHg Heart Rate 82 /min Respiratory Rate 20 /min Height 62 inches 5'2" Weight 160.25 lb BMI (Body Mass Index) 29.3 kg/m2 BSA (Body Surface Area) 1.74 m2 [place] body weight in kilograms 50 kg 02/24/2017 3:26pm BP Systolic 106 mmHg BP Diastolic 60 mmHg Body Temperature 98.0 F Heart Rate 95 /min Height 62 inches 5'2" Weight 157.00 lb BMI (Body Mass Index) 28.7 kg/m2 BSA (Body Surface Area) 1.72 m2 [place] body weight in kilograms 50 kg O2 % BldC Oximetry 98 % 06/01/2016 4:30pm BP Systolic Sitting Right Arm 112 mmHg BP Diastolic Sitting Right Arm 64 mmHg Heart Rate 72 /min Height 62 inches 5'2" Weight 152.50 lb BMI (Body Mass Index) 27.9 kg/m2 BSA (Body Surface Area) 1.70 m2 03/18/2016 10:10am BP Systolic Sitting Left Arm 100 mmHg BP Diastolic Sitting Left Arm 66 mmHg Body Temperature 97.2 F Heart Rate 56 /min Respiratory Rate 20 /min Height 62 inches 5'2" Weight 149.00 lb BMI (Body Mass Index) 27.2 kg/m2 BSA (Body Surface Area) 1.69 m2 02/24/2016 4:11pm BP Systolic Sitting Left Arm 106 mmHg BP Diastolic Sitting Left Arm 62 mmHg Height 62 inches 5'2" Weight 148.12 lb BMI (Body Mass Index) 27.1 kg/m2 BSA (Body Surface Area) 1.68 m2 [place] body weight in kilograms 50 kg 04/15/2015 5:24pm BP Systolic 124 mmHg BP Diastolic 76 mmHg Height 62 inches 5'2" Weight 134.50 lb BMI (Body Mass Index) 24.6 kg/m2 BSA (Body Surface Area) 1.62 m2 02/17/2015 10:59am BP Systolic 112 mmHg BP Diastolic 68 mmHg Heart Rate 80 /min Respiratory Rate 18 /min Height 62 inches 5'2" Weight 133.00 lb BMI (Body Mass Index) 24.3 kg/m2 BSA (Body Surface Area) 1.61 m2 01/20/2015 2:29pm BP Systolic 107 mmHg BP Diastolic 59 mmHg Body Temperature 98.6 F Heart Rate 77 /min Respiratory Rate 21 /min Weight 136.25 lb 01/06/2015 1:05pm BP Systolic 124 mmHg BP Diastolic 74 mmHg Height 62 inches 5'2" Weight 131.25 lb BMI (Body Mass Index) 24.0 kg/m2 BSA (Body Surface Area) 1.60 m2 03/04/2014 4:38pm BP Systolic 124 mmHg BP Diastolic 70 mmHg Height 61 inches 5'1" Weight 133.00 lb 04/17/2013 3:33pm BP Systolic 108 mmHg BP Diastolic 60 mmHg Heart Rate 88 /min Height 62 inches 5'2" Weight 127.00 lb 05/01/2012 4:00pm BP Systolic 112 mmHg BP Diastolic 72 mmHg Heart Rate 60 /min Respiratory Rate 18 /min Height 62 inches 5'2" Weight 119.00 lb 12/22/2011 6:49pm BP Systolic 120 mmHg BP Diastolic 78 mmHg Height 62 inches 5'2" Weight 121.00 lb 12/02/2011 10:12am BP Systolic 100 mmHg BP Diastolic 62 mmHg Weight 120.00 lb 11/11/2011 9:59am BP Systolic 115 mmHg BP Diastolic 76 mmHg Body Temperature 98.6 F Height 62 inches 5'2" Weight 118.00 lb 05/12/2011 4:30pm BP Systolic 112 mmHg BP Diastolic 70 mmHg Heart Rate 80 /min Respiratory Rate 14 /min Height 62 inches 5'2" Weight 122.00 lb 11/26/2010 4:32pm BP Systolic 136 mmHg BP Diastolic 60 mmHg Body Temperature 98.2 F Height 62 inches 5'2" Weight 119.00 lb Results Test Date Facility Test Result H/L Range Note T7/TSH 03/01/2018 [facility] [address] T3 Uptake 32 % N 31-39 1 [address] [place] [address] [phone] Thyroxine (T4) 7.9 g/dL N 4.7-13.3 T7 2.53 g/dL Low 5.0-12.0 Thyroid Stim Hormone 1.28 uIU/mL N 0.30-4.20 Glycohemoglobin A1c 03/01/2018 [facility] [address] Glycohemoglobin 5.4 % N 4.2-6.[address] (A1c) [place] [address] [phone] eAG 108 mg/dL Comprehensive Metabolic 06/07/2017 [facility] Glucose 84 mg/dL N 74-106 [address] [place] [address] [phone] BUN 12 mg/dL N 7-18 Creatinine 0.6 mg/dL N 0.6-1.3 Glom Filtration Rate, Estimate >60 mL/min >60 If >60 mL/min >60 4 BUN/Creat 20.0 ratio Sodium 138 mmol/L N 136-145 Potassium 4.2 mmol/L N 3.5-5.1 Chloride 103 mmol/L N 98-107 Carbon Dioxide 30 mmol/L N 21-32 Anion Gap 5 mEq/L Low 8-16 Calcium 8.9 mg/dL N 8.5-10.1 Total Protein 7.5 g/dL N 6.4-8.2 Albumin 3.8 g/dL N 3.4-5.0 Globulin 3.7 g/dL N 1.9-4.3 Alb/Glob 1.0 ratio Bilirubin,Total 0.2 mg/dL N 0.2-1.0 Sgot/Ast 21 U/L N 15-37 SGPT/Alt 19 U/L N 12-78 Alkaline Phosphatase 72 U/L N 45-117 Reflex add FT3? Y Reflex add FT4? Y LDL Cholesterol 06/07/2017 [facility] Cholesterol 208 mg/dL High <200 [address] [place] [address] [phone] Triglycerides 156 mg/dL High <150 6 HDL Cholesterol 72 mg/dL >40 7 LDL-Cholesterol 105 mg/dL < 100 8 Reflex add FT3? Y Reflex add FT4? Y TSH Reflex FT4 06/07/2017 [facility] Thyroid Stim 1.27 uIU/mL N 0.30-4.20 And/Or FT3 [address] [place] [address] [phone] Reflex add FT3? Y Reflex add FT4? Y Urine Drug 10/22/2016 [facility] Amphetamine Ur None Detected N None Detect SCR ED & [phone] Screen Pain Clinic Barbiturates Urine Screen None Detected N None Detect Benzodiazepine Urine Screen None Detected N None Detect Urine Cannabinoids Screen None Detected N None Detect Urine Cocaine Screen None Detected N None Detect Urine Opiates Screen None Detected N None Detect Urine Phencyclidine Screen None Detected N None Detect 9 Urinalysis Profile 10/22/2016 [facility] Urine Color Straw N [phone] Urine Appearance Clear N Urine Specific [place] 1.008 Low 1.010-1.030 Urine pH 7.0 N 5-9 Urine Urobilinogen Negative N Negative Urine Ketones Negative N Negative Urine Protein Negative N Negative Urine Leukocytes Negative N Negative Urine Blood Negative N Negative Urine Nitrite Negative N Negative Urine Bilirubin Negative N Negative Urine Glucose Negative N Negative TSH Reflex FT4 06/01/2016 [facility] Thyroid Stim 1.50 uIU/mL N 0.30-4.20 10 And/Or FT3 [address] Hormone [place], [place] [id number] [phone] Reflex add FT3? Y Reflex add FT4? Y LDL Cholesterol Profile 06/01/2016 [facility] Cholesterol 174 mg/dL <[address] [place], [place] [id number] [phone] Triglycerides 108 mg/dL <150 12 HDL Cholesterol 69 mg/dL >40 13 LDL-Cholesterol 83 mg/dL < 100 14 Reflex add FT3? Y Reflex add FT4? Y Glycohemoglobin A1c 06/01/2016 [facility] Glycohemoglobin 5.6 % N 4.2-6.[address] (A1c) [place], [place] [id number] [phone] eAG 114 mg/dL Laboratory 04/15/2015 [facility] Laboratory Cytology SEE RESULT 16 test finding [phone] Interface Order BELOW Laboratory 04/15/2015 [facility] Cytopathology Results on 17 test finding [address] Cervix/Vagina file [place], [place] [id number] [phone] Laboratory 01/06/2015 [facility] Chlamydia Negative Negative 18 test finding [address] Trachomatis, [place] [address] [phone] Laboratory 03/04/2014 N2N/CCD Import FSH 8.2 mIU/mL 19 test finding Sedimentation Rate 9 mm/hr 0-20 Thyroid Stim Hormone 1.22 uIU/mL 0.36-3.74 Vitamin D,25-Hydroxy 20.0 ng/mL Low 30.0-100.0 20 Basic Metabolic Panel 03/04/2014 N2N/CCD Import Anion Gap 9 mEq/L 8-16 BUN 9 mg/dL 7-18 BUN/Creat 15.0 ratio Calcium 9.3 mg/dL 8.5-10.1 Carbon Dioxide 30 mmol/L 21-32 Chloride 104 mmol/L 98-107 Creatinine 0.6 mg/dL 0.6-1.3 Glom Filtration Rate, Estimate >60 mL/min >60 Glucose 87 mg/dL 74-106 If >60 mL/min >60 21 Potassium 3.6 mmol/L 3.5-5.1 Sodium 139 mmol/L 136-145 CBS W/Automated Diff 03/04/2014 N2N/CCD Import Bas% 0.3 % 0.0-1.1 Baso # 0.03 K/uL 0.0-0.1 Eo% 1.0 % 0.0-6.6 Eos # 0.09 K/uL 0.0-0.5 Hematocrit 38.7 % 36.0-46.1 Hemoglobin 12.7 gm/dL 11.6-15.8 Lymph # 1.72 K/uL 0.8-3.4 Lymph % 19.6 % 17.0-46.1 Mean Cell Volume 93.0 fl 80.9-99.0 Mean Corpuscular HGB 30.5 pg 25.9-32.7 Mean Corpuscular HGB Conc 32.8 g/dL 30.8-34.3 Mean Platelet Volume 9.7 fL 8.9-12.4 [place] # 0.81 K/uL 0.3-0.9 [place] % 9.2 % 4.3-13.2 Neut# 6.12 K/uL 1.0-7.0 Neut% 69.9 % 40.4-72.8 Platelet Count 243 K/uL 155-360 Red Blood Count 4.16 M/uL 3.90-5.40 Red Cell Distri Width %CV 12.1 % 11.7-14.4 Red Cell Distri Width SD 40.1 fl 3-47 White Blood Count 8.8 K/uL 3.1-10.7 LDL Cholesterol Profile 03/04/2014 N2N/CCD Import Cholesterol 149 mg/dL < 200 22 HDL Cholesterol 68 mg/dL > 40 23 LDL-Cholesterol 69 mg/dL < 100 24 Triglycerides 61 mg/dL < 150 25 Laboratory test 03/04/2014 N2N/CCD Import ThinPrep Pap: See Note 26 finding Cervix/Endocx Dna Probe N. Gono + 12/23/2011 N2N/CCD Import Dna Probe For See Note 27 C. Trach. Chlamydia Trac. Dna Probe For N. Gonorrhoeae See Note 28 Laboratory test 12/22/2011 N2N/CCD Import ThinPrep Pap: See Note 29 finding Cervix/Endocx Laboratory test 05/12/2011 N2N/CCD Import TSH 1.13 MIU/ML 0.34-5. finding 60 Basic Metabolic 05/12/2011 N2N/CCD Import Anion Gap 5.0 mmol/L 2-11 30 Panel BUN 15 mg/dL 6-24 BUN/Creatinine Ratio 25.0 High 8-20 Calcium 9.3 mg/dL 8.1-9.9 Chloride 104 mmol/L 101-111 Co2 (Carbon Dioxide) 30.0 mmol/L 22-32 Creatinine 0.6 mg/dL 0.50-1.40 Glucose 97 mg/dL 70-100 One Over Creatinine 1.66 Potassium 3.9 mmol/L 3.5-5.0 Sodium 139 mmol/L 135-145 eGFR 147.2 > 60 31 eGFR Non- 114.4 > 60 CBC With Manual Diff 05/12/2011 N2N/CCD Import Absolute Neutrophil Count 3.7 Eosinophil 1 % 0-6 Hematocrit 39 % 35-47 Hemoglobin 13.5 g/dL 12.0-16.0 Lymphocyte 33 % 25-47 Mean Corpuscular HGB Cone 35 g/dL 32-36 Mean Corpuscular Hemoglob 33 pg High 27-31 Mean Corpuscular Volume 93 um3 79-97 Mean Platelet Volume 8.8 um3 7.4-10.4 Monocyte 5 % 0-13 Platelet Count 234 CUMM 150-450 Polysegmented Neutrophil 61 % 38-83 RBC Morphology Normal Red Cell Count 4.14 CUMM Low 4.2-5.4 Redcell Distribution WDTH 13 % 10.5-15 White Blood Count 6.1 CUMM 4.8-10.8 Laboratory test finding 11/26/2010 N2N/CCD Import Cytology Pap See Note 32 1 R63.5 2 Elevated levels of HbA1c suggest the need for more aggressive treatment of glycemia. The [place] [employer] Association recommends that a primary goal of therapy should be a HbA1c of <7% and that physicians should re-evaluate the treatment regimen in patients with HbA1c values consistently >8%. 3 Z13.6 4 Note: Persistent reduction for 3 months or more in an eGFR <60 mL/min/1.73 m2 defines CKD. Patients with eGFR values >/=60 mL/min/1.73 m2 may also have CKD if evidence of persistent proteinuria is present. The original MDRD equation for estimated GFR is not valid for patients less than 18 years of age. Additional information may be found at www.kdoqi.org. 5 Reference Guidelines*: Desirable: ........... < 200 mg/dL Borderline High: ..... 200-239 mg/dL High: ................ >=240 mg/dL * The National Cholesterol Education Program (NCEP) 6 Reference Guidelines*: Normal: ............. < 150 mg/dL Borderline High: .... 150-199 mg/dL High: ............... 200-499 mg/dL Very High: .......... > 500 mg/dL * Source: National Cholesterol Education Program (NCEP) 7 Reference Guidelines*: Low HDL: ..... < 40 mg/dL Normal: ..... 40-60 mg/dL Desirable: ... > 60 mg/dL *The National Cholesterol Education Program(NCEP) 8 Reference Guidelines*: Optimal:........... <100 mg/dL Near Optimal....... 100-129 mg/dL Borderline High.... 130-159 mg/dL High............... 160-189 mg/dL Very High.......... >=190 mg/dL * Source: National Cholesterol Education Program (NCEP) 9 The urine specimen was tested at the listed cutoffs: Drug class test level (ng/mL) Amphetamines 500 Barbiturates 200 Benzodiazepine metabolites 200 Cocaine metabolites 150 Cannabinoids 50 Opiates 300 Pcp 25 Specimen was received without chain of custody. Results should be used for medical purposes only. 10 R63.5 11 Reference Guidelines*: Desirable: ........... < 200 mg/dL Borderline High: ..... 200-239 mg/dL High: ................ >=240 mg/dL * The National Cholesterol Education Program (NCEP) 12 Reference Guidelines*: Normal: ............. < 150 mg/dL Borderline High: .... 150-199 mg/dL High: ............... 200-499 mg/dL Very High: .......... > 500 mg/dL * Source: National Cholesterol Education Program (NCEP) 13 Reference Guidelines*: Low HDL: ..... < 40 mg/dL Normal: ..... 40-60 mg/dL Desirable: ... > 60 mg/dL *The National Cholesterol Education Program(NCEP) 14 Reference Guidelines*: Optimal:........... <100 mg/dL Near Optimal....... 100-129 mg/dL Borderline High.... 130-159 mg/dL High............... 160-189 mg/dL Very High.......... >=190 mg/dL * Source: National Cholesterol Education Program (NCEP) 15 Elevated levels of HbA1c suggest the need for more aggressive treatment of glycemia. The [place] Diabetes Association recommends that a primary goal of therapy should be a HbA1c of <7% and that physicians should re-evaluate the treatment regimen in patients with HbA1c values consistently >8%. 16 SEE RESULT BELOW Name: ROSI DAY : [address]: Ginger Tang MD Acct: [id number] Unit: [id number] AGE: 39 Location: [facility] Re04/15/15 SEX: F Status: REG REF SPEC: [id number] RITIKA: 04/15/15-1700 [facility] DR: Ginger Tang MD REQ: [id number] RECD: 04/16/15-1043 STATUS: HELLEN RONDON DR: [facility], Lab _ ORDERED: IMAGE ANALYSIS FINAL DIAGNOSIS Negative for Intraepithelial lesion or Malignancy A. Ectocervical/Endocervical Specimen Adequacy: Satisfactory of evaluation Transformation zone component identified Patient Information: HPV: Thin Layer Pap Test w/reflex to high risk HPV RNA testing when ASCUS Actual Specimen Date: 04/15/15 Last Menstrual Date: 03/26/15 ?: N Post Menopausal?: N Hysterectomy?: N Signed (signature on file) CHUY Caro (ASCP) 04/16 1252 This Pap test was evaluated with the assistance of the Lattice IncorporatedPrep Test Imaging System. Due to cytologic findings at the home theater experience expert microscope, comprehensive manual rescreening by a It Director may be required. The Pap Smear is a screening test designed to aid in the detection of premalignant and malignant conditions of the uterine cervix. It is not a diagnostic procedure and should not be used as the sole means of detecting cervical cancer. Both false- positive and false- negative reports do occur. Depending on your risk status, a Pap smear should be obtained and evaluated every 1-3 years. END OF REPORT * ML=Testing performed at Main Lab DEPARTMENT OF PATHOLOGY, [address] [place] [address] Toby Delacruz M.D. Director [facility] # [id number] 17 Report may be viewed in PCI: Medical Record Forms -> LAB-GALVANOMETER ASSEMBLER Testing referred to: [place] [address] [address] [facility] * [place] [address] Ph.#. [phone] 18 A negative result for either C. trachomatis and/or N. gonorrhoeae does not preclued an infection because results are dependent on adequate specimen collection, absence of inhibitors, and sufficient DNA to be detected. 19 NORMALLY MENSTRUATING FEMALES: Follicular Phase:............... 2.3-12.6 mIU/mL Mid-Cycle Peak:................. 5.2-17.5 mIU/mL Luteal Phase: ................... 1.7-9.5 mIU/mL POSTMENOPAUSAL FEMALES: On menopausal hormone therapy (MHT)... 5.9-72.8 mIU/mL Not on MHT ........................... 0.7-10.8 mIU/mL 20 Vitamin D deficiency has been defined by the [place] of Medicine and an Endocrine Society practice guideline as a level of serum 25-OH vitamin D less than 20 ng/mL (1,2). The Endocrine Society went on to further define vitamin D insufficiency as a level between 21 and 29 ng/mL (2). 1. IOM ([place] of Medicine). 2010. Dietary reference intakes for calcium and D. [place]: The National Academies Press. 2. Loulou MF, Prinec NC, Tyron WALL, et al. Evaluation, treatment, and prevention of vitamin D deficiency: an Endocrine Society clinical practice guideline. JCEM. 2010; 96(7):1911-30. Performed at: - [facility] [address] [id number] Staff Radiologist: Hali Harrington MD, Phone: [phone] 21 Note: Persistent reduction for 3 months or more in an eGFR <60 mL/min/1.73 m2 defines CKD. Patients with eGFR values >/=60 mL/min/1.73 m2 may also have CKD if evidence of persistent proteinuria is present. The original MDRD equation for estimated GFR is not valid for patients less than 18 years of age. Additional information may be found at www.kdoqi.org. 22 Reference Guidelines*: Desirable: ........... < 200 mg/dL Borderline High: ..... 200-239 mg/dL High: ................ >=240 mg/dL * The National Cholesterol Education Program (NCEP) 23 Reference Guidelines*: Low HDL: ..... < 40 mg/dL Normal: ..... 40-60 mg/dL Desirable: ... > 60 mg/dL *The National Cholesterol Education Program(NCEP) 24 Reference Guidelines*: Optimal:........... <100 mg/dL Near Optimal....... 100-129 mg/dL Borderline High.... 130-159 mg/dL High............... 160-189 mg/dL Very High.......... >=190 mg/dL * Source: National Cholesterol Education Program ( NCEP) 25 Reference Guidelines*: Normal: ............. < 150 mg/dL Borderline High: .... 150-199 mg/dL High: ............... 200-499 mg/dL Very High: .......... > 500 mg/dL * Source: National Cholesterol Education Program (NCEP) 26 CYTOLOGY SCREENER Screened by: Bindu YUSUF(ASCP) PAP: FINAL REPORT SPECIMEN ADEQUACY: SPECIMEN SATISFACTORY FOR INTERPRETATION ADEQUATE ENDOCERVICAL/TRANSFORMATION ZONE NOTED INTERPRETATION: NEGATIVE FOR INTRAEPITHELIAL LESION OR MALIGNANCY COMMENT: SHIFT IN RIOS SUGGESTIVE OF BACTERIAL VAGINOSIS HYPERKERATOSIS BENIGN CELLULAR CHANGES ASSOCIATED WITH INFLAMMATION THINPREP PREPARED PAP SLIDE # Prepared in the Cytology laboratory from the ThinPrep sample is 1 ThinPrep smear. PAP ACCESSI QUESTIONNAIRE 02/23 PERTINENT CLINICAL HISTORY FOR PAP (GALVANOMETER ASSEMBLER) CYTOLOGY (Check all that apply): ? N Post ? N Menopause? N LMP date: 02/18/14 Post Hysterectomy? N Is cervix present? Y If patient had related surgical procedure: Related Therapy : IUD: Y Oral Contraception: Depo: Nova Ring: Hormone Replacement: Emergency Planner Patient Number: [id number] Significant Clinical History: V72.31 ===== DISCLAIMER: The Pap smear is a screening test and not a diagnostic procedure. False negative and false positive results can and do occur for a number of reasons. Regular screening provides an aid in detecting treatable cervical abnormalities, but should not be used as the only means for detecting cervical dysplasia and carcinoma. ----- Signed Electronically signed JERRI MILLS MD 03/07/14 0958 ----- 27 NEGATIVE FOR CHLAMYDIA TRACHOMATIS BY DNA HYBRIDIZATION ASSAY. THIS TEST IS APPROVED FOR OCULAR AND UROGENITAL SITES ONLY. 28 NEGATIVE FOR NEISSERIA GONORRHOEAE BY DNA HYBRIDIZATION ASSAY. THIS METHOD IS APPROVED FOR UROGENITAL SITES ONLY. 29 CYTOLOGY SCREENER - GALVANOMETER ASSEMBLER @ 03/27 Screened by: CHUY Ramirez(ASCP) PAP: FINAL REPORT SPECIMEN ADEQUACY: SPECIMEN SATISFACTORY FOR INTERPRETATION INTERPRETATION: NEGATIVE FOR INTRAEPITHELIAL LESION OR MALIGNANCY COMMENT: FUNGAL ORGANISMS MORPHOLOGICALLY CONSISTENT WITH TAMMY SPP BENIGN CELLULAR CHANGES ASSOCIATED WITH INFLAMMATION HYPERKERATOSIS THINPREP PREPARED PAP SLIDE # Prepared in the Cytology laboratory from the ThinPrep sample is 1 ThinPrep smear. PAP ACCESSI QUESTIONNAIRE 02/23 PERTINENT CLINICAL HISTORY FOR PAP (GALVANOMETER ASSEMBLER) CYTOLOGY (Check all that apply): ? N Post ? N Menopause? N LMP date: IRREGULAR If patient had related surgical procedure: Related Therapy: Significant Clinical History: ANNUAL ===== DISCLAIMER: The Pap smear is a screening test and not a diagnostic procedure. False negative and false positive results can and do occur for a number of reasons. Regular screening provides an aid in detecting treatable cervical abnormalities, but should not be used as the only means for detecting cervical dysplasia and carcinoma. ----- SHRUTHI Freeman 12/24/11 1433 ----- 30 Anion gap measurement may be of limited value in the presence of any alkalosis, especially in a combined acid base disorder. . 31 Because ethnic data is not always readily available, this report includes an eGFR for both -Americans and non- Americans. The National Kidney Disease Education Program (NKDEP) does not endorse the use of the MDRD equation for patients that are not between the ages of 18 and 70, are , have extremes of body size, muscle mass, or nutritional status, or are non- or non-. According to the National Kidney Foundation, irrespective of diagnosis, the stage of the disease is based on the level of kidney function: Stage Description GFR(mL/min/1.73 m(2)) 1 Kidney damage with normal or decreased GFR 90 2 Kidney damage with mild decrease in GFR 60- 89 3 Moderate decrease in GFR 30-59 4 Severe decrease in GFR 15-29 5 Kidney failure <15 (or dialysis) 32 [facility] [address] [place] [address], [address] [place] [address] CYTOLOGY REPORT Name: Rosi Day : 1975 (Age: 35) Sex: F Location: [facility] Sec. #: Date Collected: 11/26/2010 Billing #: [id number] Date Received: 11/30/2010 Physician(s): GINGER TANG MD Source of Specimen: ENDOCERVICAL/ECTOCERVICAL THIN PREP Clinical Information: Date of Last Menstrual Period: 10/27/10 Menstrual History: Regular Specimen Adequacy: SATISFACTORY FOR EVALUATION. ADEQUATE ENDOCERVICAL/TRANSFORMATION ZONE. ABUNDANT ACUTE INFLAMMATION. General Categorization: NEGATIVE FOR INTRAEPITHELIAL LESION OR MALIGNANCY. Descriptive Evaluation: FUNGAL ORGANISMS MORPHOLOGICALLY CONSISTENT WITH TAMMY SP. dcl Electronic Signature Nani Thakkar CT (ASCP) Reported: 12/02/2010 Also seen by:CHUY Boyce (ASCP) [facility] ICD-9 Code(s) V72.31 A: 112.1 Procedures Date Code Description Status 02/27/2018 80509 Brief Emotional/Behav Assessment W/ Scoring Doc Per Completed Standard Inst 01/09/2018 22378 Brief Emotional/Behav Assessment W/ Scoring Doc Per Completed Standard Inst 12/16/2017 85072 Brief Emotional/Behav Assessment W/ Scoring Doc Per Completed Standard Inst 06/27/2017 23573896 Mammogram Completed 02/17/2015 37307 Theraputic Or Diagnostic Injection Completed 01/06/2015 23313 Removal Of IUD Completed 01/06/2015 73401 Insertion Of Intrauterine Device Completed 10/27/2009 57613 Insertion Of Intrauterine Device Completed 10/27/2009 49343 Removal, Non-Biodegradable Drug Delivery Implant Completed 10/27/2009 04107 Insertion, Non-Biodegradable Drug Delivery Implant Completed Encounters Type Date Location Provider Dx Diagnosis Office Visit 06/12/2018 Family Medicine Fito, F41.1 Generalized anxiety 9:15a [address] [place], disorder [employer]BER J30.9 Allergic rhinitis, unspecified Office Visit 03/01/2018 4:00p Family Medicine Family Nurse Z11.[address] screening for respiratory tuberculosis Office Visit 02/27/2018 4:00p Family Medicine More Mccray, R63.[address] [employer] gain F33.0 Major depressive disorder, recurrent, mild Z11.1 Encounter for screening for respiratory tuberculosis Office Visit 01/09/2018 8:30a Family Medicine More Mccray, F33.[address] [employer] disorder, recurrent, mild E66.9 Obesity, unspecified Z71.3 Dietary counseling and surveillance Office Visit 12/16/2017 4:15p Family Medicine More Mccray, F33.[address] [employer]BER disorder, recurrent, mild R20.0 Anesthesia of skin Office Visit 06/07/2017 4:00p Family Medicine Pooja Jennings, Z01.419 Encntr for subscription crew leader Maximo ALLEN M.Stefania exam (general) (routine) w/o abn findings Z12.31 Encntr screen mammogram for malignant neoplasm of breast F33.1 Major depressive disorder, recurrent, moderate Z13.6 Encounter for screening for cardiovascular disorders Z23 Encounter for immunization Office Visit 02/24/2017 3:00p Family Medicine Flori Mcmahon, Z00.00 Encntr for Maximo ALLEN PNP-BC, [employer]BER, general adult Ibclc medical exam w/o abnormal findings Z12.31 Encntr screen mammogram for malignant neoplasm of breast Office Visit 06/01/2016 4:30p [facility] Medicine Pooja Jennings, Z01.411 Encntr for subscription crew leader Maximo ALLEN M.D. exam (general) (routine) w abnormal findings R63.5 Abnormal weight gain Office Visit 03/18/2016 10:15a [facility] Medicine Flori Mcmahon, J01.90 Acute sinusitis, Maximo ALLEN PNP-BC, [employer]BER, unspecified Ibclc H65.02 Acute serous otitis media, left ear Office Visit 02/24/2016 4:30p [facility] Medicine Pooja Jennings, Z02.1 Encounter for Maximo ALLEN M.D. pre-employment examination Z11.1 Encounter for screening for respiratory tuberculosis Office Visit 04/15/2015 4:30p [facility] Jose M Tang Z00.00 Encntr for Maximo Miles MD general adult medical exam w/o abnormal findings Z12.4 Encounter for screening for malignant neoplasm of cervix Office Visit 02/19/2015 4:00p [facility] Richard Z11.1 Encounter for Medicine Maximo Woods M.D. screening for RD respiratory tuberculosis Office Visit 02/17/2015 11:00a [facility] Fito Z00.00 Encntr for general Medicine Maximo Gonzalez, adult medical exam RD [employer] w/o abnormal findings H69.92 Unspecified Eustachian tube disorder, left ear Z11.1 Encounter for screening for respiratory tuberculosis Office Visit 01/20/2015 2:00p [facility] Jose M Kessler H66.92 Otitis media, Maximo Buenrostro MD unspecified, left ear Office Visit 01/06/2015 11:45a [facility] Jose M Tang Z30.8 Encounter for other Maximo Miles MD contraceptive management Plan of Treatment Future Appointment(s):06/21/2018 4:15 pm - More Mccray FNP at [facility]06/12/2018 - Lisa Payton FNPF41.1 Generalized anxiety disorderNew Medication:Buspirone HCL 5 mg - take 1 -2 tablet by mouth three times a dayComments:Discussed options - at this time will add in Busiprone to help with anxiety attacksFollow up:As scheduled .9 Allergic rhinitis, unspecifiedNew Medication:Montelukast Sodium 10 mg - take one tablet by mouth every evening
[2018-06-13] MEDS ORDERED: LORazepam INJ* 2 MG/ML 1 ML VIAL IV PUSH ONE (13:13)
[2018-06-13] MEDS ORDERED: Lorazepam PYXIS KEY PRN (13:13)
[2018-06-13 13:17] LABS: HCG Pregnancy < 0.60 mIU/mL
[2018-06-13 14:34] LABS: TSH (Thyroid Stimulating Horm) 1.71 mcIU/mL (0.34-5.60)
[2018-06-13 14:57] VITALS: BP 122/77
== END 2018-06-13 14:59 | disposition home or self-care (01) ==
LOC: ED 12:13
DX: R07.89 Other chest pain (principal); F41.9 Anxiety disorder, unspecified; R06.02 Shortness of breath; Z87.891 Personal history of nicotine dependence; R00.2 Palpitations
CPT/HCPCS: 36415; 71045; 80053; 83605; 83880; 84443; 84484; 84702; 85025; 85379; 85610; 93005; 96361; 96374; 99283; J2060